=== PATIENT | male | born 1945 | race Caucasian/White ===

== ENCOUNTER 2017-03-29 14:17 | Outpatient (CLI) | payer OTHER, MEDICAID | END 2017-03-29 21:08 | disposition home or self-care (01) | LOC: SLB 14:17 | DX: N40.1 Benign prostatic hyperplasia with lower urinary tract symptoms (principal) | CPT/HCPCS: 36415; 84153 ==

== ENCOUNTER 2018-01-28 16:22 | Emergency (ER) | payer OTHER, MEDICAID ==
[~2018-01-28] VITALS: Ht 165.1 cm; Wt 81.6 kg
[2018-01-28 16:22] VITALS: BP_SYST 180
[2018-01-28 18:01] VITALS: BP_SYST 153
== END 2018-01-28 17:44 | disposition home or self-care (01) ==
LOC: SED 16:22
DX: S22.32XA Fracture of one rib, left side, initial encounter for closed fracture (principal); I10 Essential (primary) hypertension; Z88.2 Allergy status to sulfonamides; W01.0XXA Fall on same level from slipping, tripping and stumbling without subsequent striking against object, initial encounter; Y93.89 Activity, other specified; Y92.89 Other specified places as the place of occurrence of the external cause; Y99.8 Other external cause status
CPT/HCPCS: 71100; 99283